=== PATIENT | female | born 2000 | race Caucasian/White ===

== ENCOUNTER 2020-08-11 15:06 | Emergency (ER) | payer OTHER ==
[2020-08-11 17:05] LABS: Urine Blood NEGATIVE (NEG); Urine Glucose NEGATIVE (NEG); Urine Protein NEGATIVE (NEG); Urine Specific Gravity 1.025 (1.005-1.030)
[2020-08-11 18:05] LABS: Absolute Lymphocytes (CBC) 1.5 K/uL (0.7-4.9); Basophils % 0.4 % (0-1.3); Hematocrit 33.7 % (36.0-45.0); Lymphocytes % 20.8 % (15.3-44.8); MPV 8.8 fL (7.6-11.3); RBC Red Blood Cell Count 3.96 M/uL (3.86-4.86)
--- NOTE | 2020-08-11 18:05 | RAD REPORT ---
EXAM DESCRIPTION: US - Transvaginal OB - 08/11/2020 5:43 pm CLINICAL HISTORY: with pelvic pain and vaginal bleeding COMPARISON: None. FINDINGS: The uterus measures 9 x 5 x 6 centimeters. A normal appearing gestational sac is present within the endometrium. Within this is a yolk sac and pole with a crown-rump length 4.5 centime ters. Cardiac activity 171 beats per minute 4.1 centimeter isoechoic structure is present along the anterior uterine wall. Right ovary normal in size and echotexture. Left ovary not seen secondary to overlying bowel gas. . A n adnexal mass is not noted. No significant free fluid is seen. IMPRESSION: Single live intrauterine with an estimated gestational age 11 weeks 0 days ED D 03/02/2021 4.1 centimeter isoechoic structure anterior uterine wall may represent a fibroid, myometrial contract ion or hematoma. It is recommended that the patient have a followup ultrasound in 1 week for re-evalu ation If a survey is desired it should be performed in approximately 7 weeks
--- NOTE | 2020-08-11 18:35 | ER ---
Nurse's Notes [facility] Name: Samaria Alonzo Age: 20 yrs Sex: Female : 2000 Arrival Date: 08/11/2020 Time: 15:08 Bed 28 Private MD: Diagnosis: Threatened ;11 weeks gestation of Presentation: 08/11 15:43 Chief complaint: Patient states: I am 11 weeks and I was bleeding last night, ca1 but it stopped about 0500 - 0600 this morning. Denies pain. Coronavirus screen: Client denies travel out of the [place] in the last 14 days. At this time, the client does not indicate any symptoms associated with coronavirus-19. Ebola Screen: Patient negative for fever greater than or equal to 101.5 degrees Fahrenheit, and additional compatible Ebola Virus Disease symptoms Patient denies exposure to infectious person. Patient denies travel to an Ebola-affected area in the 21 days before illness onset. No symptoms or risks identified at this time. Initial Sepsis Screen: Does the patient meet any 2 criteria? No. Patient's initial sepsis screen is negative. Does the patient have a suspected source of infection? No. Patient's initial sepsis screen is negative. Risk Assessment: Do you want to hurt yourself or someone else? Patient reports no desire to harm self or others. Onset of symptoms was August 11, 2020. 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 - Social history:: Smoking status: Patient denies any tobacco usage or history of. Screenin:01 Abuse screen: Denies threats or abuse. Nutritional screening: No deficits noted. jd3 Tuberculosis screening: No symptoms or risk factors identified. Fall Risk Ambulatory Aid- None/Bed Rest/Nurse Assist (0 pts). Gait- Normal/Bed Rest/Wheelchair (0 pts) Mental Status- Oriented to own ability (0 pts). Total Mora Fall Scale indicates No Risk (0-24 pts). Assessment: 17:58 General: Appears in no apparent distress. uncomfortable, Behavior is calm, cooperative, jd3 appropriate for age. Pain: Denies pain. Neuro: Level of Consciousness is awake, alert, obeys commands, Oriented to person, place, time, situation. Cardiovascular: Denies chest pain, Capillary refill < 3 seconds Patient's skin is warm and dry. Respiratory: Airway is patent Respiratory effort is even, unlabored, Respiratory pattern is regular, symmetrical, Denies cough, shortness of breath. GI: Reports constipation, Patient currently denies abdominal pain, diarrhea, nausea, vomiting. : Reports vaginal bleeding that is since today. EENT: No signs and/or symptoms were reported regarding the EENT system. Derm: Skin is intact, Skin is dry, Skin is normal, Skin temperature is warm. Musculoskeletal: Circulation, motion, and sensation intact. Range of motion: intact in all extremities. 18:57 Reassessment: Patient appears in no apparent distress at this time. Patient and/or jd3 family updated on plan of care and expected duration. Pain level reassessed. Patient is alert, oriented x 3, equal unlabored respirations, skin warm/dry/pink. Patient denies pain at this time. Vital Signs: 15:43 BP 111 / 71; Pulse 74; Resp 16 S; Temp 97.9(TE); Pulse Ox 100% on R/A; Weight 75.3 kg ca1 (R); Height 5 ft. 5 in. (165.10 cm) (R); Pain 0/10; 18:57 BP 115 / 78; Pulse 81; Resp 16 S; Pulse Ox 100% on R/A; jd3 15:43 Body Mass Index 27.62 (75.30 kg, 165.10 cm) ca1 ED Course: 15:08 Patient arrived in ED. ag5 15:19 Joanna Buenrostro FNP-C is PHCP. kb 15:19 Ambrose Reynolds MD is Attending Physician. kb 15:44 Triage completed. ca1 15:45 Arm band placed on right wrist. ca1 17:13 Patient taken to ultrasound. via wheelchair. is 17:18 Marvin Randolph RN is Primary Nurse. jd3 17:37 Ultrasound completed. Patient tolerated well. Patient moved back from ultrasound. is 17:55 Inserted saline lock: 20 gauge in left antecubital area, using aseptic technique. Blood dh4 collected. 18:01 Patient has correct armband on for positive identification. Bed in low position. Call jd3 light in reach. Side rails up X 1. Adult w/ patient. Pulse ox on. NIBP on. 18:56 No provider procedures requiring assistance completed. IV discontinued, intact, jd3 bleeding controlled, No redness/swelling at site. Pressure dressing applied. Administered Medications: No medications were administered Outcome: 18:34 Discharge ordered by . sheryl 18:56 Discharged to home ambulatory, with family. jd3 18:56 Condition: stable 18:56 Discharge instructions given to patient, family, Instructed on discharge instructions, follow up and referral plans. Demonstrated understanding of instructions, follow-up care. 18:58 Patient left the ED. jd3 Signatures: Joanna Buenrostro, PIECE MEAT TRIMMER-C ANTOINETTE-Marvin Vargas RN RN jd3 Acob, Cheryl, RN RN ca1 Gaskin, Ajare 5 Erma, Radha is Mohit Connor 4
--- NOTE | 2020-08-11 18:35 | EDPHYS ---
Physician Documentation [facility] Name: Samaria Alonzo Age: 20 yrs Sex: Female : 2000 Arrival Date: 08/11/2020 Time: 15:08 Bed 28 Private MD: ED Physician Ambrose Reynolds HPI: 08/11 18:28 This 20 yrs old Female presents to ER via Ambulatory with complaints of kb Vaginal Bleeding, + Preg <12wks. 18:28 The patient presents to the emergency department with vaginal bleeding, described as kb spotting. course: care: private OB physician, Dr. Adrian. Previous pregnancies: the patient has never been . Associated signs and symptoms: The patient has no apparent associated signs or symptoms. The patient has not experienced similar symptoms in the past. The patient has not recently seen a physician. Pt reports vaginal bleeding last night, resolved around 0400. Called Dr Adrian's office this morning and was told to come to the ER to make sure everything was ok. 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 - Social history:: Smoking status: Patient denies any tobacco usage or history of. ROS: 18:31 Constitutional: Negative for fever, chills, and weight loss, Cardiovascular: Negative kb for chest pain, palpitations, and edema, Respiratory: Negative for shortness of breath, cough, wheezing, and pleuritic chest pain, Abdomen/GI: Negative for abdominal pain, nausea, vomiting, diarrhea, and constipation, : Negative for injury, bleeding, discharge, and swelling, MS/Extremity: Negative for injury and deformity, Skin: Negative for injury, rash, and discoloration, Neuro: Negative for headache, weakness, numbness, tingling, and seizure. Exam: 18:31 Constitutional: This is a well developed, well nourished patient who is awake, alert, kb and in no acute distress. Head/Face: Normocephalic, atraumatic. Chest/axilla: Normal chest wall appearance and motion. Nontender with no deformity. No lesions are appreciated. Cardiovascular: Regular rate and rhythm with a normal S1 and S2. No gallops, murmurs, or rubs. Normal PMI, no JVD. No pulse deficits. Respiratory: Lungs have equal breath sounds bilaterally, clear to auscultation and percussion. No rales, rhonchi or wheezes noted. No increased work of breathing, no retractions or nasal flaring. Abdomen/GI: Soft, non-tender, with normal bowel sounds. No distension or tympany. No guarding or rebound. No evidence of tenderness throughout. Skin: Warm, dry with normal turgor. Normal color with no rashes, no lesions, and no evidence of cellulitis. MS/ Extremity: Pulses equal, no cyanosis. Neurovascular intact. Full, normal range of motion. Neuro: Awake and alert, GCS 15, oriented to person, place, time, and situation. Cranial nerves II-XII grossly intact. Motor strength 5/5 in all extremities. Sensory grossly intact. Cerebellar exam normal. Normal gait. Vital Signs: 15:43 BP 111 / 71; Pulse 74; Resp 16 S; Temp 97.9(TE); Pulse Ox 100% on R/A; Weight 75.3 kg ca1 (R); Height 5 ft. 5 in. (165.10 cm) (R); Pain 0/10; 18:57 BP 115 / 78; Pulse 81; Resp 16 S; Pulse Ox 100% on R/A; jd3 15:43 Body Mass Index 27.62 (75.30 kg, 165.10 cm) ca1 MDM: 16:31 Patient medically screened. kb 18:31 Data reviewed: vital signs, nurses notes. Data interpreted: Pulse oximetry: on room air kb is 100 %. Interpretation: normal. Counseling: I had a detailed discussion with the patient and/or guardian regarding: the historical points, exam findings, and any diagnostic results supporting the discharge/admit diagnosis, lab results, radiology results, the need for outpatient follow up, an OB/Gyne specialist, to return to the emergency department if symptoms worsen or persist or if there are any questions or concerns that arise at home. 08/11 16:33 Order name: Quantitative Hcg kb 08/11 16:33 Order name: Abo/rh Typing kb 08/11 16:33 Order name: Basic Metabolic Panel kb 08/11 16:33 Order name: CBC with Diff kb 08/11 16:41 Order name: Urine Dipstick--Ancillary (enter results) bd 08/11 16:41 Order name: Urine --Ancillary (enter results) bd 08/11 16:31 Order name: US Transvaginal Ob kb 08/11 17:06 Order name: Urine --Ancillary; Complete Time: 17:09 EDMS 08/11 17:06 Order name: Urine Dipstick-Ancillary; Complete Time: 17:09 EDMS 08/11 18:11 Order name: CBC with Automated Diff; Complete Time: 18:13 EDMS 08/11 18:42 Order name: ABO/RH typing; Complete Time: 18:53 EDMS 08/11 18:42 Order name: Basic Metabolic Panel; Complete Time: 18:53 EDMS 08/11 18:42 Order name: HCG, Quantitative; Complete Time: 18:53 EDMS 08/11 18:50 Order name: ABO/RH no charge; Complete Time: 18:53 EDMS 08/11 15:21 Order name: Urine Test (obtain specimen); Complete Time: 17:19 kb 08/11 15:21 Order name: Urine Dipstick-Ancillary (obtain specimen); Complete Time: 17:19 kb 08/11 16:33 Order name: Labs collected and sent; Complete Time: 17:51 kb 08/11 18:08 Order name: US; Complete Time: 18:13 EDMS Administered Medications: No medications were administered Disposition: 08/11/20 18:34 Discharged to Home. Impression: Threatened , 11 weeks gestation of . - Condition is Stable. - Discharge Instructions: Vaginal Bleeding During , First Trimester, First Trimester of , [id number], Threatened Miscarriage, [id number], Pelvic Rest. - Medication Reconciliation Form, Thank You Letter, Antibiotic Education, Prescription Opioid Use form. - Follow up: Emergency Department; When: As needed; Reason: Worsening of condition. Follow up: Private Physician; When: 2 - 3 days; Reason: Recheck today's complaints, Continuance of care, Re-evaluation by your physician. Addendum: 08/13/2020 19:43 Co-signature as Attending Physician, Ambrose Reynolds MD. r n Signatures: Dispatcher [employer] ED Joanna Buenrostro, INTERNATIONAL TRADE MANAGER-C INTERNATIONAL TRADE MANAGER-Ckb Ambrose Reynolds MD MD rn Davies, Jonathon RN RN jd3 Jackie Dee RN RN ca1 Corrections: (The following items were deleted from the chart) 08/11 18:58 18:34 08/11/2020 18:34 Discharged to Home. Impression: Threatened ; 11 weeks jd3 gestation of . Condition is Stable. Discharge Instructions: Vaginal Bleeding During , First Trimester, First Trimester of , [id number], Threatened Miscarriage, [id number], Pelvic Rest. Forms are Medication Reconciliation Form, Thank You Letter, Antibiotic Education, Prescription Opioid Use. Follow up: Emergency Department; When: As needed; Reason: Worsening of condition. Follow up: Private Physician; When: 2 - 3 days; Reason: Recheck today's complaints, Continuance of care, Re-evaluation by your physician. kb
[2020-08-11 18:41] LABS: BUN Blood Urea Nitrogen 5 mg/dL (7-18); Bicarbonate 26 mmol/L (21-32); Glucose Level 99 mg/dL (74-106); HCG, Quantitative 100333 mIU/mL (1-3); Potassium 3.6 mmol/L (3.5-5.1); Sodium Level 139 mmol/L (136-145)
[2020-08-14 23:42] VITALS: BP 115/78; O2SAT 100
[2020-08-14 23:43] VITALS: TEMP 97.9
== END 2020-08-11 18:58 | disposition home or self-care (01) ==
LOC: ER 15:06
DX: O20.0 Threatened abortion (principal); Z3A.11 11 weeks gestation of pregnancy
CPT/HCPCS: 36415; 76817; 80048; 81003; 81025; 84702; 85025; 86900; 86901; 99284

== ENCOUNTER 2021-02-17 23:54 | Inpatient (IN) | payer OTHER ==
[2021-02-18] MEDS ORDERED: MEPERIDINE HCL 25 MG/ML SYR IM ONE (01:10)
[2021-02-18] MEDS ORDERED: PROMETHAZINE INJ 25 MG/ML AMP IM ONE (01:10)
[2021-02-18] MEDS ORDERED: PROMETHAZINE INJ 25 MG/ML AMP ONE (01:39)
[2021-02-18] MEDS ORDERED: MEPERIDINE HCL 25 MG/ML SYR ONE (01:39)
[2021-02-18 04:20] LABS: Absolute Lymphocytes (CBC) 1.6 K/uL (0.7-4.9); Basophils % 0.5 % (0-1.3); Hematocrit 33.7 % (36.0-45.0); Lymphocytes % 12.8 % (15.3-44.8); RBC Red Blood Cell Count 3.96 M/uL (3.86-4.86)
[2021-02-18 04:24] VITALS: BMI 31.2
[2021-02-18] MEDS ORDERED: MEPERIDINE HCL 25 MG/ML SYR IV PRN (04:34)
[2021-02-18] MEDS ORDERED: BUTORPHANOL 1 MG/ML INJ IV PRN (04:34)
[2021-02-18] MEDS ORDERED: METHYLERGONOVINE 0.2MG/ML AMP IM PRN (04:34)
[2021-02-18] MEDS ORDERED: Ringers Lactate 1,000 ML IV PRN (04:34)
[2021-02-18] MEDS ORDERED: CARBOPROST TROME 250 MCG/ML IM PRN (04:34)
[2021-02-18] MEDS ORDERED: PROMETHAZINE INJ 25 MG/ML AMP IM PRN (04:34)
[2021-02-18] MEDS ORDERED: FENTANYL CITR 100 MCG/2 ML IV ONE (04:42)
[2021-02-18] MEDS ORDERED: ROPIVACAINE HCL 0.2% 20ML AMP EP ONE ×2 (04:46→05:00)
[2021-02-18] MEDS ORDERED: Ringers Lactate 1,000 ML IV SCH (05:00)
[2021-02-18] MEDS ORDERED: OXYTOCIN/LR 20 UNIT/1,000 ML BAG IV SCH ×2 (05:00→08:00)
[2021-02-18] MEDS ORDERED: ROPIVACAINE HCL 100 ML EP ONE (05:19)
[2021-02-18] MEDS ORDERED: LIDOCAINE 1% MPF 30 ML VIAL ONE (07:30)
[2021-02-18] MEDS ORDERED: METHYLERGONOVINE 0.2MG/ML AMP IM ONE (07:30)
[2021-02-18] MEDS ORDERED: CARBOPROST TROME 250 MCG/ML IM ONE (07:30)
[2021-02-18] MEDS ORDERED: DOCUSATE NA/SENNA CONC 1 TAB PO PRN (07:34)
[2021-02-18] MEDS ORDERED: BISACODYL 10 MG RECTAL SUPP PR PRN (07:34)
[2021-02-18] MEDS ORDERED: IBUPROFEN 200 MG TAB PO PRN (07:34)
[2021-02-18] MEDS ORDERED: ACETAMINOPHEN 500 MG TAB PO PRN (07:34)
[2021-02-18] MEDS ORDERED: Oxycodone HCl/Acetaminophen 1 TAB TAB PO PRN ×2 (07:34)
[2021-02-18] MEDS ORDERED: DIPHENHYDRAMINE 25 MG TAB/CAP PO PRN (07:34)
--- NOTE | 2021-02-18 11:57 | PREOPHP ---
Date of Admission: 02/18/2021 History Of Present Illness: A 21-year-old primigravida 38 weeks 5 days came in active labor. During the first stage of labor received Demerol 25 mg and Phenergan 25 mg. She was admitted and progresse d to 4 cm, at which time, requested and received epidural anesthesia. Admitted for stabilization and delivery at that point. Family History: Noncontributory. Past Medical History: No. Past Surgical History: No surgery. Allergies: NO ALLERGIES. Allergies: NO MEDICATION PRIOR TO ADMISSION OTHER THAN VITAMINS AND IRON. Social History: Does not smoke. Physical Examination: HEENT: Clear. Pupils equal, round, reactive to light and accommodation. Conjunctivae well perfused . No oral, lingual, or buccal lesions. Chest and lungs: Clear. Heart: Without murmurs, thrills, heaves, rubs. Breasts: Without masses on previous visits. Extremities: Clear. Abdomen: Term size, but with the baby expected to be in the 6-pound range. Assessment And Plan: Admit for stabilization and delivery. The patient is Rh positive, immune to ru elizabeth, negative strep, positive COVID completely asymptomatic. HAMILTONC/MODL Voice ID: [id number]
[2021-02-19 01:09] LABS: RPR (Rapid Plasma Reagin) NON-REACT (NON-REACT)
--- NOTE | 2021-02-19 06:38 | DN ---
Surgeon: Colt Adrian MD This is a 21-year-old primigravida, at 38 weeks 5 days came in early labor, was given Demerol 25, Phe nergan 25 initially then epidural anesthesia at 4 cm, went rapidly to complete second stage of about 15 minutes. Spontaneous vaginal delivery of a 6 pounds 7 ounces male infant, Apgars 9 and 9. No epi siotomy. No laceration. Schultze delivery of the placenta was inspected and noted to be intact and normal. Less than 200 cc blood loss. Tolerated all procedures well. She was noted to be in positiv e COVID but completely asymptomatic. Final Diagnoses: Term intrauterine , spontaneous labor, epidural anesthesia, and positive C OVID status, asymptomatic. NBC/MODL Voice ID: [id number] Report ID: [id number]
[2021-02-19 07:48] VITALS: BP 121/76; TEMP 97.2
[2021-02-19] MEDS ORDERED: Tdap (Diph,Pertuss(Acell),Tet Vac) 0.5 ML SYR IMVAC ONE (08:35)
--- NOTE | 2021-02-19 11:26 | DS ---
Hospital Course: A 21-year-old, primigravida, 38 weeks 5 days, came in spontaneous labor. Delivered of a 6-pound 7-ounce male infant, Apgars 9 and 9. Epidural anesthesia. No episiotomy. No lacerati on. Schultze delivery of the placenta, which inspected and noted to be intact and normal. Less than 200 mL blood loss. Rh positive, immune to rubella. Negative strep. Positive COVID, completely asy mptomatic. ; afebrile, ambulating and voiding. No post epidural problems. To report back to my office in 6 weeks for followup to report any temperature elevation of 100 degrees or greater, severe pain, heavy bleeding, or any other type abnormalities. Tdap has been discussed several times during the and again today. Final Diagnoses: Term intrauterine 38 weeks 5 days, spontaneous labor, vaginal delivery, e pidural anesthesia, positive COVID, completely asymptomatic. MARK/ARAMIS Voice ID: [id number] Report ID: [id number]
[2021-02-20 15:14] LABS: HBsAG Nonreactive (Nonreactive)
== END 2021-02-19 12:30 | disposition home or self-care (01) | DRG 805 ==
LOC: L&D 23:54 → 2ND-WC 02-18 03:41
PROVIDERS: ADMIT Specialist; ATTEND Specialist
PROC: 10E0XZZ Delivery of Products of Conception, External Approach (ICD-10-PCS; principal; 2021-02-18)
DX: O98.52 Other viral diseases complicating childbirth (principal); U07.1 COVID-19; Z37.0 Single live birth; Z3A.38 38 weeks gestation of pregnancy; Z23 Encounter for immunization
CPT/HCPCS: 36415; 85025; 86592; 86901; 87340; 90471; 90715; J2175; J2210; J2550; J2590; J2795; J3010; J7120; U0003

== ENCOUNTER 2023-03-08 20:57 | Emergency (ER) | payer OTHER ==
--- OUTSIDE RECORDS SUMMARY | 2023-03-08 21:01 | XMS REPORT | Continuity of Care Document ---
:2000 Author Organization [facility] t Address [address] [facility]. [address] [place] [address] Care Team Providers Name Role Phone PCP, PATIENT DOES NOT HAVE A Primary Care Physician Unavaila FRANCES Gómez Attending Clinician Unavailable 2, Adc Lab Attending Clinician Unavailable Frances Riojas MD Attending Clinician Doctor Unassigned, [place] Attending Clinician Unavailable ANGELA SANCHEZ Attending Clinician Unavailable Justino Chan CRNA Attending Clinician Brennon Jordan MD Attending Clinician [phone] Rachelle Stevens MD Attending Clinician Only, Adc Test Attending Clinician Unavailable Pob, Adc Lab Main Attending Clinician Unavailable Room, [facility] Nst Attending Clinician Unavailable Angela Sanchez PA-C Attending Clinician Ultrasound, Ang-Mfm Attending Clinician Unavailable Telma Fontanez DO Attending Clinician FRANCES RIOJAS Admitting Clinician Unavailable Frances Riojas MD Admitting Clinician Payers Payer Name Policy Type Policy Number Effective Date Expiration Date Gabi MUNOZ [id number] 2016 HEALTH 00:00:00 Problems Condition Condition Condition Status Onset Resolution Last Treating Co mments Source Name Details Category Date Date Treatment Clinician Date Anemia, Anemia, Disease Active Univers antepartum antepartum -18 it y of , third , third 00:00: [place] trimester trimester 00 [facility] Depression Depression Disease Active U nivers during during 2-09 ity of , , [place] antepartum antepartum 00 Me dical Branch Allergies, Adverse Reactions, Alerts Allergy Allergy Status Severity Reaction(s) Onset Inactive Treating Comm ents Source Name Type Date Date Clinician NO KNOWN Drug Active Univers ALLERGIE Class ity of S [facility] Social History Social Habit Start Date Stop Date Quantity Comments Source History SDOH University o f Alcohol Frequency [place] M edical Branch History SDOH University o f Alcohol Std [place] Medical Drinks Branch History SDOH University o f Alcohol Binge [place] Medic al Branch Exposure to 2022-12-12 2022-12-22 Not sure University SARS-CoV-2 00:00:00 15:04:00 [facility] (event) [place] Alcohol intake 2022-12-22 2022-12-22 Current drinker Unive rsity of 00:00:00 00:00:00 of alcohol [facility] (finding) [place] Tobacco use and 2022-03-16 2022-03-16 Smokeless tobacco Un iversity of exposure 00:00:00 00:00:00 non-user [facility] Alcohol Comment 2021-10-14 2021-10-14 occationa Universit y of 00:00:00 00:00:00 [facility] Sex Assigned At [birth year] Universit y of 00:00:00 00:00:00 [facility] Smoking Status Start Date Stop Date Source Never smoked tobacco [facility] Medications Ordered Filled Start Stop Current Ordering Indication Dosage Frequency Signature Comments Components Source Medication Medication Date Date Medication? 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 levonorgest 2021- No [id number] 1{devic 1 Device Univers reL 05-1914 e} by ity of (MIRENA) 20 00:00: 00:00 Intrauteri [place] mcg/24 00 :00 ne route Medical hours (7 once now Branch yrs) 52 mg for 1 IUD dose. miSOPROStoL 2021- No [id number] 200ug Take 1 Univers 200 mcg 04-13 tablet by ity of tablet 00:00: 00:00 mouth [place] 00 :00 SEE-INSTRU Medical CTIONS. Branch Take one tab the night before and one tab the morning of procedure miSOPROStoL 2021- No [id number] 200ug Take 1 Univers 200 mcg 04-13 tablet by ity of tablet 00:00: 00:00 mouth [place] 00 :00 SEE-INSTRU Medical CTIONS. Branch Take one tab the night before and one tab the morning of procedure Yes [id number] 1{tbl} Take 1 Univers vitamin 7-20 09 tablet by ity of w/FA tablet 00:00: mouth [place] 00 the Medical morning. Branch Yes [id number] 1{tbl} Take 1 Univers vitamin 7-20 09 tablet by ity of w/FA tablet 00:00: [place] 00 the Medical morning. [facility] Yes [id number] 1{tbl} Take 1 Univers vitamin 7-20 09 tablet by ity of w/FA tablet 00:00: [place] 00 the Medical morning. [facility] Yes [id number] 1{tbl} Take 1 Univers vitamin 7-20 09 tablet by ity of w/FA tablet 00:00: [place] 00 the Medical morning. [facility] Yes [id number] 1{tbl} Take 1 Univers vitamin 7-20 09 tablet by ity of w/FA tablet 00:00: [place] 00 the Medical morning. [facility] Yes [id number] 1{tbl} Take 1 Univers vitamin 7-20 09 tablet by ity of w/FA tablet 00:00: [place] 00 the Medical morning. [facility] Yes [id number] 1{tbl} Take 1 Univers vitamin 7-20 09 tablet by ity of w/FA tablet 00:00: [place] 00 the Medical morning. [facility] 2022- No [id number] 1{tbl} Take 1 Univers vitamin 7-20 04-19 09 tablet by ity of w/FA tablet 00:00: 00:00 mouth [place] 00 :00 the Medical morning. [facility] 2022- No [id number] 1{tbl} Take 1 Univers vitamin 7-20 04-19 09 tablet by ity of w/FA tablet 00:00: 00:00 mouth [place] 00 :00 the Medical morning. [place] docusate 2021- No [id number] 200mg Take 2 Univers 100 mg -05-19 09 capsules ity of capsule 00:00: 00:00 by mouth [place] 00 :00 once daily Medical as needed Branch for Constipati on. ferrous 2021- No [id number] 325mg Take 1 Univers sulfate 325 -05-19 09 tablet by it y of mg (65 mg 00:00: 00:00 mouth in [place] as iron) 00 :00 the Medical tablet morning Branch and 1 tablet in the evening. ibuprofen 2021- No [id number] 600mg Take 1 Univers 600 mg 03-24 09 tablet by ity of tablet 00:00: 00:00 mouth [place] 00 :00 every 6 Medical (six) Branch hours as needed (Pain). Take with food or milk. docusate No [id number] 200mg Take 2 Univers 100 mg 03-24 09 capsules ity of capsule 00:00: 00:00 by mouth [place] 00 :00 once daily Medical as needed Branch for Constipati on. ferrous No [id number] 325mg Take 1 Univers sulfate 325 03-24 tablet by it y of mg (65 mg 00:00: 00:00 mouth in [place] iron) 00 :00 the Medical tablet morning Branch and 1 tablet in the evening. ibuprofen No [id number] 600mg Take 1 Univers 600 mg 03-24 09 tablet by ity of tablet 00:00: 00:00 mouth [place] 00 :00 every 6 Medical (six) Branch hours as needed (Pain). Take with food or milk. Immunizations Ordered Filled Immunization Date Status Comments [facility] Immunization Name Name [facility] 2022-01-07 Completed University of 00:00:00 [facility] [place] [facility] 2022-01-07 Completed University of 00:00:00 [facility] TDAP 2022-01-07 Completed University of 00:00:00 [facility] TDAP 2022-01-07 Completed University of 00:00:00 [facility] TDAP 2022-01-07 Completed University of 00:00:00 [facility] TDAP 2022-01-07 Completed University of 00:00:00 [facility] TDAP 2022-01-07 Completed University of 00:00:00 [facility] TDAP 2022-01-07 Completed University of 00:00:00 [facility] [place] [facility] 2022-01-07 Completed University of 00:00:00 [facility] Vital Signs Vital Name Observation Time Observation Value Comments Source Systolic blood 2022-12-22 20:24:00 95 mm[Hg] Univer sity of pressure [facility] Diastolic blood 2022-12-22 20:24:00 69 mm[Hg] Unive rsity of pressure [facility] Heart rate 2022-12-22 20:24:00 92 /min [facility]i [facility] [place] [facility] Body temperature 2022-12-22 20:24:00 36.83 Winsome Univ ersity of [place] [facility] Body weight 2022-12-22 20:24:00 69.854 kg [facility] [place] [facility] BMI 2022-12-22 20:24:00 25.63 kg/m2 [facility] [place] [facility] Systolic blood 2022-06-16 20:03:00 130 mm[Hg] Univer sity of pressure [place] [facility] Diastolic blood 2022-06-16 20:03:00 65 mm[Hg] Unive rsity of pressure [place] [facility] Heart rate 2022-06-16 20:03:00 81 /min [facility]i [facility] [place] [facility] Body temperature 2022-06-16 20:03:00 36.67 Winsome Univ ers[facility] [place] [facility] Respiratory rate 2022-06-16 20:03:00 18 /min Univ ers[facility] [place] [facility] Body height 2022-06-16 20:03:00 165.1 cm [facility] [place] [facility] Body weight 2022-06-16 20:03:00 72.757 kg [facility] [place] [facility] BMI 2022-06-16 20:03:00 26.69 kg/m2 [facility] [place] [facility] Systolic blood 2022-05-19 14:13:00 121 mm[Hg] Univer sity of pressure [place] [facility] Diastolic blood 2022-05-19 14:13:00 79 mm[Hg] Unive rsity of pressure [place] [facility] Heart rate 2022-05-19 14:13:00 62 /min Universi [facility] [place] [facility] Body temperature 2022-05-19 14:13:00 36.72 Winsome Univ [facility] [place] [facility] Respiratory rate 2022-05-19 14:13:00 18 /min Univ ers[facility] [place] [facility] Body height 2022-05-19 14:13:00 165.1 cm [facility] [place] [facility] Body weight 2022-05-19 14:13:00 73.029 kg [facility]i [facility] [place] [facility] BMI 2022-05-19 14:13:00 26.79 kg/m2 [facility] [place] [facility] Procedures Procedure Date / Time Performed Performing Clinician Sour e ASSIGNMENT OF BENEFITS 2022-12-22 20:05:16 Doctor Unassigned, No [facility] 2022-05-19 05:01:00 Doctor Unassigned, No [facility] POCT TEST 2022-05-19 00:00:00 Frances Riojasi ty of [facility] Encounters Start End Encounter Admission Attending Care Care Encounter Source Date/Time Date/Time Type Type Clinicians Facility Department ID 2022-03-01 Outpatient P FRANCES RIOJAS [facility] DENYS [id number] Univers 17:20:14 ity of [facility] 2022-12-22 2022-12-22 Brim Stretcher 2, Adc Lab [facility] 1.2.840.114 [id number] Univers 16:00:00 16:15:00 Visit Frances Riojas 350.1.13.10 ity [facility] 4[place]7.2.[place] [id number] Fl dical NAL [address] [facility] 2022-12-22 2022-12-22 Outpatient R FRANCES RIOJAS [facility] [id number] Univers 15:30:00 15:45:22 ity of [facility] 2022-12-22 2022-12-22 Office Frances Riojas [facility] [id number] Univers 15:30:00 15:45:22 Visit Dajuan MARTIN 350.1.13.10 i ty [facility] 4[place]2.7.2.[place] [id number] Fl dical NAL 134 [facility] 2022-12-22 2022-12-22 Orders Doctor MULLEN 1.2.840.114 [id number] Univers 00:00:00 00:00:00 Only Unassigned, GRACE 350.1.13.10 ity of [facility] 4.2.7.2.686 Major as [id number] [address] 2022-12-15 2022-12-15 Outpatient R LAURA [facility] [id number] Univers 13:30:00 13:30:00 ANGELA ity of [facility] 2022-10-14 2022-10-14 Emergency [facility] [id number] Univers 13:49:47 13:49:00 ity of [facility] 2022-06-16 2022-06-16 Outpatient R [facility] [id number] Univers 15:30:00 15:30:00 ity of [facility] 2022-06-16 2022-06-16 Office Riojas [facility] [id number] Univers 15:30:00 15:30:00 Visit Dajuan MARTIN 350.1.13.10 i ty of [place] 4.2.7.2.[place] [id number] Fl dical [address] 2022-06-16 2022-06-16 Outpatient R FRANCES RIOJAS [facility] [id number] Univers 15:30:00 15:13:08 ity of [facility] 2022-05-19 2022-05-19 Outpatient R [facility] [id number] Univers 09:00:00 09:47:42 ity of [facility] 2022-05-19 2022-05-19 Office Riojas [facility] [id number] Univers 09:00:00 09:47:42 Visit Dajuan MARTIN 350.1.13.10 i ty of [place] 4.2.7.2.[place] [id number] Fl dic[address] 2022-05-19 2022-05-19 [facility] [id number] Univers 09:00:00 09:47:42 ity [facility] 2022-05-19 2022-05-19 Orders Doctor MULLEN 1.2.840.114 [id number] Univers 00:00:00 00:00:00 Only Unassigned, GR[place] 350.1.13.10 ity of [facility] 4.2.7.2.686 [place] as [id number] [address] 2022-04-13 2022-04-13 Outpatient R RIOJAS [facility] [id number] Univers 08:00:00 08:48:12 ity [facility] 2022-04-13 2022-04-13 Routine Shine [facility] 1.2.669.808 [id number] Univers 08:00:00 08:48:12 Cam [place] 350.1.13.10 ity of Visit [place] 4.2.7.2.686 [facility] [id number] Fl dical [facility] 134 Branch [facility] 2022-04-12 2022-04-12 Outpatient R [facility] [id number] Univers 13:00:00 13:00:00 ity of [facility] 2022-04-12 2022-04-12 Outpatient R [facility] [id number] Univers 13:00:00 13:00:00 ity of [facility] 2022-03-23 2022-03-24 Inpatient P SHINE [facility] DENYS [id number] Univers 04:19:00 20:15:00 ity of [facility] 2022-03-23 2022-03-24 [facility] Shine Frances [facility] 1.2.840.114 [id number] Univers 04:19:00 20:15:00 Encounter Cam [place] 350.1.13.10 ity of [place] 4.2.7.2.686 [facility] [id number] [place] [address] Branch 2022-03-24 2022-03-24 Anesthesia Rocio, [facility] 1.2.840.114 [id number] Univers 20:03:54 20:03:54 Event Justino [place] 350.1.13.10 i ty of [place] 4.2.7.2.686 [facility] [id number] [place] [id number] Branch 2022-03-23 2022-03-23 Anesthesia Antony-Brennon Dias [facility] 1.2.840.114 [id number] Univers 11:15:00 16:54:00 Event Rachelle Stevens [place] 350.1.13.10 ity of [place] 4.2.7.2.686 [facility] [id number] [facility] 083 Branch 2022-03-22 2022-03-22 Laboratory Only, Adc Test [facility] 1.2.840. 114 [id number] Univers 13:15:00 13:30:00 Only Frances Riojas 350.1.13.10 ity of [facility] 4.2.7.2.[place] [id number] [facility] 353 [place] 2022-03-22 2022-03-22 Outpatient R FRANCES RIOJAS [facility] [id number] Univers 13:15:00 13:15:00 ity of [facility] 2022-03-22 2022-03-22 Brim Stretcher [place], [facility] Lab Main [facility] 1.2.8 40.114 [id number] Univers 10:45:00 11:00:00 Visit Frances Riojas 350.1.13.10 ity of [place] 4.2.7.2.[place] [id number] Fl dical NAL 353 [facility] 2022-03-22 2022-03-22 Outpatient R FRANCES RIOJAS [facility] [id number] Univers 09:00:00 10:07:44 ity of [facility] 2022-03-22 2022-03-22 Routine Room, [facility] 1.2.840.1 [id number] Univers 09:00:00 10:07:44 Frances Riojas 350.1.13.10 ity of Visit [place] 4[place]2.7.2.[place] [id number] Fl dical NAL 134 [facility] 2022-03-22 2022-03-22 Orders Doctor PAZ 1.2.840.114 [id number] Univers 00:00:00 00:00:00 Only Unassigned, GRACE 350.1.13.10 ity of [place] [facility] 4.2.7.2.686 Major as [id number] [facility] 00[address] [place] 2022-03-16 2022-03-16 Outpatient R FRANCES RIOJAS [facility] [id number] Univers 15:00:00 15:49:33 ity of [facility] 2022-03-16 2022-03-16 Routine Frances Riojas [facility] 1.2.797.042 [id number] Univers 15:00:00 15:49:33 Dajuan MARTIN 350.1.13.10 ity of Visit [place] 4.2.7.2.686 [place] [id number] [address] 2022-03-12 2022-03-12 Telephone RiojasVjen [facility] 1.2.840.114 [id number] Univers 00:00:00 00:00:00 Cam VERONICA 350.1.13.10 i ty of [place] 4.2.7.2.686 [place] [id number] [address] 2022-03-09 2022-03-09 Outpatient R LAURA [facility] [id number] Univers 08:45:00 09:39:43 ANGELA ity of [facility] 2022-03-09 2022-03-09 [facility] 1.2.978.371 [id number] Univers 08:45:00 09:39:43 Angela MARTIN 350.1.13.10 ity of Visit [place] 4.2.7.2.[place] [id number] [address] 2022-03-02 2022-03-02 Outpatient R FRANCES RIOJAS [facility] [id number] Univers 15:45:00 16:41:39 ity of [facility] 2022-03-02 2022-03-02 [facility] [id number] Univers 15:45:00 16:41:39 Cam VERONICA 350.1.13.10 ity of Visit [place] 4.2.7.2.[place] [id number] [address] 2022-03-02 2022-03-02 Orders Doctor PAZ 1.2.840.114 [id number] Univers 00:00:00 00:00:00 Only Unassigned, GRACE 350.1.13.10 ity of [place] [facility] 4.2.7.2.686 Major as [id number] [address] 2022-03-01 2022-03-01 Outpatient P SHINE [facility] DENYS [id number] Univers 15:38:00 17:20:00 ity of [facility] 2022-03-01 2022-03-01 Hospital Frances Riojas [facility] 1.2.840.114 [id number] Univers 15:38:00 17:20:00 Encounter Dajuan JOMESHA 350.1.13.10 ity of [place] 4.2.7.2.686 [place] [id number] [facility] 083 Branch 2022-03-01 2022-03-01 Telephone Frances Riojas [facility] 1.2.840.114 [id number] Univers 00:00:00 00:00:00 Cam VERONICA 350.1.13.10 i ty of [place] 4.2.7.2.686 [place] [id number] Fl dical NAL 134 [facility] 2022-01-21 2022-01-21 Outpatient R FRANCES RIOJAS [facility] [id number] Univers 11:15:00 11:15:00 ity of [facility] 2022-01-07 2022-01-07 Routine Laura [facility] [id number] Univers 09:45:00 10:00:00 Angela MARTIN 350.1.13.10 ity of Visit [place] 4.2.7.2.[place] [id number] Fl dical NAL [address] [place] [address] 2022-01-07 2022-01-07 Outpatient R LAURA [facility] [id number] Univers 09:45:00 09:45:00 ANGELA ity [facility] 2021-12-24 2021-12-24 Outpatient R [facility] [id number] Univers 11:00:00 11:00:00 ity of [facility] 2021-12-23 2021-12-23 Orders Doctor PAZ 1.2.840.114 [id number] Univers 00:00:00 00:00:00 Only Unassigned, GRACE 350.1.13.10 ity of [place] [facility] 4.2.7.2.686 Major as [id number] [facility] 009 Branch 2021-12-10 2021-12-10 Outpatient R SHINE [facility] [id number] Univers 16:15:00 17:14:50 ity of [facility] 2021-12-10 2021-12-10 Routine Frances Riojas [facility] 1.2.022.396 [id number] Univers 16:15:00 17:14:50 Cam [place] 350.1.13.10 ity of Visit [place] 4.2.7.2.[place] [id number] Fl dic[address] 2021-12-07 2021-12-07 Telephone Frances Riojas [facility] 1.2.840.114 [id number] Univers 00:00:00 00:00:00 Cam VERONICA 350.1.13.10 i ty of [place] 4.2.7.2.[place] [id number] Fl dic[address] 2021-12-03 2021-12-03 Telephone Frances Riojas [facility] 1.2.840.114 [id number] Univers 00:00:00 00:00:00 Dajuan MARTIN 350.1.13.10 i ty of [place] 4.2.7.2.[place] [id number] [address] 2021-11-25 2021-11-25 Brim Stretcher [facility] 1.2 .840.114 [id number] Univers 11:00:00 12:00:00 Visit Telma Fontanez [facility] 350.1.13.10 ity of [facility] 4.2.7.2.686 Major as MATERNAL [id number] Med ical & CHILD [address] [place] [address] 2021-11-25 2021-11-25 Outpatient R JOSÉ [facility] [id number] Univers 11:00:00 11:00:00 TELMA ity of [facility] 2021-11-24 2021-11-24 Outpatient P [facility] [id number] Univers 14:45:00 14:45:00 ity [facility] 2021-11-20 2021-11-20 Telephone Frances Riojas [facility] 1.2.840.114 [id number] Univers 00:00:00 00:00:00 Dajuan MARTIN 350.1.13.10 i ty of [place] 4.2.7.2.[place] [id number] Fl dical NAL 134 [facility] 2021-11-20 2021-11-20 Telephone Frances Riojas [facility] 1.2.840.114 [id number] Univers 00:00:00 00:00:00 Dajuan MARTIN 350.1.13.10 i ty of [place] 4[place]2.7.2.[place] [id number] Fl dical NAL 134 [facility] 2021-11-16 2021-11-16 Outpatient R FRANCES RIOJAS [facility] [id number] Univers 09:45:00 09:45:00 ity of [facility] 2021-11-12 2021-11-12 Brim Stretcher 2, Adc Lab [facility] 1.2.840.114 [id number] Univers 10:45:00 11:00:00 Visit Frances Riojas 350.1.13.10 ity of [place] 4[place]2.7.2.[place] [id number] Fl dical PATRICIA 353 [facility] 2021-11-12 2021-11-12 [facility] [id number] Univers 09:30:00 10:31:32 ANGELA burnett [facility] 2021-11-12 2021-11-12 [facility] [id number] Univers 09:30:00 10:31:32 Angela MARTIN 350.1.13.10 ity of Visit [place] 4[place]2.[place] [id number] Fl dical [facility] 134 [facility] 2021-11-12 2021-11-12 Outpatient R LAURA [facility] [id number] Univers 09:30:00 09:30:00 ANGELA burnett [facility] 2021-11-12 2021-11-12 Orders Frances Riojas 1.2.613.436 [id number] Univers 00:00:00 00:00:00 Only Dajuan EDWARDS 350.1.13.10 it y of [facility] 4.2.7.2.686 Major as [id number] [address] 2021-10-29 2021-10-29 Orders Doctor PAZ 1.2.840.114 [id number] Univers 00:00:00 00:00:00 Only Unassigned, GRACE 350.1.13.10 ity of [place] [facility] 4.2.7.2.686 Major as [id number] [address] 2021-10-27 2021-10-27 Outpatient R FRANCES RIOJAS [facility] [id number] Univers 14:45:00 15:14:55 ity of [facility] 2021-10-27 2021-10-27 Routine Frances Riojas [facility] 1.2.206.646 [id number] Univers 14:45:00 15:14:55 Cam VERONICA 350.1.13.10 ity of Visit [place] 4[place]2.[place] PROFESSIO [phone] [address] 2021-10-20 2021-10-20 Telephone Frances Riojas PRCAROLINE [id number] Univers 00:00:00 00:00:00 Cam ANGLEMESHA [id number] i [id number] [phone] [address] 2021-10-19 2021-10-19 Outpatient R [facility] [id number] Univers 09:30:00 09:30:00 ity of [facility] 2021-10-16 2021-10-16 Case Frances Riojas PRCAROLINE [place] [id number] Univers 00:00:00 00:00:00 Management Cam CHRISTOPHER [id number] it[id number] [id number] [address] 2021-10-15 2021-10-15 Telephone Frances Riojas PRCAROLINE [id number] Univers 00:00:00 00:00:00 Cam VERONICA [id number] i [id number] PROFESS[place] [phone] [address] 2021-10-14 2021-10-14 Initial Frances Riojas [facility] [id number] Univers 10:00:00 11:38:21 Cam VERONICA [id number] ity of [id number] PROFESS[place] [phone] Me dical [address] 2021-10-14 2021-10-14 Outpatient R FRANCES RIOJAS [facility] [id number] Univers 10:00:00 11:38:21 ity of [facility] 2021-10-14 2021-10-14 Telephone rFances Riojas [facility] [id number] Univers 00:00:00 00:00:00 Cam VERONICA [id number] i ty [id number] PROF[place] [phone] Fl dical [address] Results Test Description Test Time Test Comments Results Result Comments Source POCT TEST 2022-05-19 14:19:00 Test Item Value Reference Range Interpretation Comme nts POCT PREG (test code = 1605) Negative On board controls acceptable with C Line (test code = 3574) Yes POCT PREG LOT # (test code = 3575) PO[facility]REG TEST DATE (test code = 3576[id number]:19:00 Test Item Value Reference Range Interpretation Comments POCT PREG (test code = 1605) Negative On board controls acceptable with C Yes Line (test code = 3574) POCT PREG LOT # (test code = 3575) POCT PREG TEST DATE (test code = 3576) [facility]
[2023-03-08] MEDS ORDERED: HYDROCODONE/APAP 5/325 MG TAB ONE (22:14)
[2023-03-08] MEDS ORDERED: HYDROMORPHONE HCL 1 MG/ML INJ ONE (22:57)
--- NOTE | 2023-03-09 03:54 | ER ---
Nurse's Notes [facility] Name: Samaria Alonzo Age: 23 yrs Sex: Female : 2000 Arrival Date: 03/08/2023 Time: 20:57 Bed 11 Private MD: Diagnosis: Pain in left elbow;Fracture of upper end of [id number];Fall on same level from slipping, tripping and stumbling with subsequent striking against object Presentation: 03/08 21:21 Chief complaint: Patient states: C/o pain and tingling to left arm 04/14, pt states she ll3 fell and hit left elbow on a tile floor, swelling noted to left elbow. Coronavirus screen: Vaccine status: Patient reports being unvaccinated. At this time, the client does not indicate any symptoms associated with coronavirus-19. Ebola Screen: No symptoms or risks identified at this time. Initial Sepsis Screen: Does the patient meet any 2 criteria? HR > 90 bpm. Yes Does the patient have a suspected source of infection? No. Patient's initial sepsis screen is negative. Risk Assessment: Do you want to hurt yourself or someone else? Patient reports no desire to harm self or others. Onset of symptoms was March 08, 2023 at 21:00. 21:21 Method Of Arrival: Ambulatory ll3 21:21 Acuity: DENIA 3 ll3 21:21 Care prior to arrival: Medication(s) given: Tylenol, 1000 mg. ll3 Triage Assessment: 21:24 General: Appears uncomfortable, Behavior is calm, cooperative. Pain: Complains of pain ll3 in left elbow Pain radiates to left hand Pain currently is 8 out of 10 on a pain scale. Quality of pain is described as sharp. Musculoskeletal: Swelling present in left elbow. Injury Description: Fall from standing position. 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 - Social history:: Smoking status: Patient denies any tobacco usage or history of. Vital Signs: 21:21 BP 124 / 89; Pulse 96; Resp 16; Temp 98.4(O); Pulse Ox 100% on R/A; Weight 73.48 kg ll3 (R); Height 5 ft. 5 in. (R); Pain 8/10; 21:21 Body Mass Index 26.96 (73.48 kg, 165.1 cm) ll3 21:21 Pain Scale: Adult 3 ED Course: 20:59 Patient arrived in ED. jj6 21:12 Lucy Do FNP-C [facility] snw 21:12 Amrit Pascal MD is Attending Physician. snw 21:23 Triage completed. ll3 21:24 Arm band placed on right wrist. Patient placed in waiting room, Patient notified of 3 wait time. 22:44 Roxanne Izquierdo, RN is Primary Nurse. kd3 22:58 Elbow Left 3 View XRAY In Process Unspecified. EDMS 22:59 Wrist Left (2 View) XRAY In Process Unspecified. EDMS Administered Medications: 22:09 Drug: HYDROcodone-acetaminophen PO 5 mg-325 mg 1 tabs Route: PO; ll3 03/09 04:27 Follow up: Response: No adverse reaction; Pain is decreased kd3 07 22:57 Drug: HYDROmorphone IM 1 mg Route: IM; Site: right deltoid; kd3 03/09 04:26 Follow up: Response: No adverse reaction; Pain is decreased kd3 03:55 Drug: HYDROmorphone IM 1 mg Route: IM; Site: right deltoid; kd3 04:26 Follow up: Response: No adverse reaction; Pain is decreased kd3 Outcome: 03:53 Discharge ordered by . snw 04:27 Patient left the ED. kd3 Signatures: Dispatcher [employer] EDMS Lucy Do FNP-C SLOTTER OPERATOR HELPER-Csnw Kia Izquierdo jj6 Radhames Biggs RN RN 3 Roxanne Izquierdo, RN RN kd3
--- NOTE | 2023-03-09 03:54 | EDPHYS ---
Physician Documentation [facility] Name: Samaria Alonzo Age: 23 yrs Sex: Female : 2000 Arrival Date: 03/08/2023 Time: 20:57 Bed 11 Private MD: ED Physician Amrit Pascal HPI: 03/08 22:46 This 23 yrs old Female presents to ER via Ambulatory with complaints of Arm snw Injury. 22:46 The patient or guardian complains of contusion, decreased range of motion, injury, snw pain. The complaints affect the dorsal aspect of left forearm and palmar aspect of left forearm. Onset: The symptoms/episode began/occurred suddenly, just prior to arrival. Associated signs and symptoms: Pertinent positives: tingling. The patient has not experienced similar symptoms in the past. It is unknown whether or not the patient has recently seen a physician. 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 - Social history:: Smoking status: Patient denies any tobacco usage or history of. ROS: 22:43 Constitutional: Negative for fever, chills, and weight loss, Eyes: Negative for injury, snw pain, redness, and discharge, ENT: Negative for injury, pain, and discharge, Neck: Negative for injury, pain, and swelling, Cardiovascular: Negative for chest pain, palpitations, and edema, Respiratory: Negative for shortness of breath, cough, wheezing, and pleuritic chest pain, Abdomen/GI: Negative for abdominal pain, nausea, vomiting, diarrhea, and constipation, Back: Negative for injury and pain, : Negative for injury, bleeding, discharge, and swelling, Skin: Negative for injury, rash, and discoloration, Neuro: Negative for headache, weakness, numbness, tingling, and seizure, Psych: Negative for depression, anxiety, suicide ideation, homicidal ideation, and hallucinations. 22:43 MS/extremity: Positive for injury or acute deformity, decreased range of motion, pain, swelling, tenderness, of the left arm and left elbow. Exam: 22:42 Musculoskeletal/extremity: Extremities: grossly normal except: noted in the left elbow: snw decreased ROM, swelling, tenderness, ROM: limited active range of motion due to pain, in the left elbow, limited passive range of motion due to pain, Pulses: are normal with no appreciated deficits, Perfusion: the extremity is warm, with brisk capillary refill, Tingling of extremity. 22:44 Constitutional: This is a well developed, well nourished patient who is awake, alert, snw and in no acute distress. Head/Face: Normocephalic, atraumatic. Eyes: Pupils equal round and reactive to light, extra-ocular motions intact. Lids and lashes normal. Conjunctiva and sclera are non-icteric and not injected. Cornea within normal limits. Periorbital areas with no swelling, redness, or edema. Neck: Trachea midline, no thyromegaly or masses palpated, and no cervical lymphadenopathy. Supple, full range of motion without nuchal rigidity, or vertebral point tenderness. No Meningismus. Chest/axilla: Normal chest wall appearance and motion. Nontender with no deformity. No lesions are appreciated. Cardiovascular: Regular rate and rhythm with a normal S1 and S2. No gallops, murmurs, or rubs. Normal PMI, no JVD. No pulse deficits. Respiratory: Lungs have equal breath sounds bilaterally, clear to auscultation and percussion. No rales, rhonchi or wheezes noted. No increased work of breathing, no retractions or nasal flaring. Skin: Warm, dry with normal turgor. Normal color with no rashes, no lesions, and no evidence of cellulitis. Neuro: Awake and alert, GCS 15, oriented to person, place, time, and situation. Cranial nerves II-XII grossly intact. Motor strength 5/5 in all extremities. Sensory grossly intact. Cerebellar exam normal. Normal gait. Psych: Awake, alert, with orientation to person, place and time. Behavior, mood, and affect are within normal limits. Vital Signs: 21:21 BP 124 / 89; Pulse 96; Resp 16; Temp 98.4(O); Pulse Ox 100% on R/A; Weight 73.48 kg ll3 (R); Height 5 ft. 5 in. (R); Pain 04/14; 21:21 Body Mass Index 26.96 (73.48 kg, 165.1 cm) ll3 21:21 Pain Scale: Adult ll3 MDM: 22:00 Differential diagnosis: dislocation, closed fracture. Data reviewed: vital signs, snw nurses notes, radiologic studies. Management of patient was discussed with the following: Dr. Huntley. I considered the following discharge prescriptions or medication management in the emergency department Medications were administered in the Emergency Department. See NOV. 22:00 Counseling: I had a detailed discussion with the patient and/or guardian regarding: the snw historical points, exam findings, and any diagnostic results supporting the discharge/admit diagnosis, radiology results, the need for outpatient follow up, for definitive care, to return to the emergency department if symptoms worsen or persist or if there are any questions or concerns that arise at home. Response to treatment: the patient's symptoms have markedly improved after treatment. Special discussion: Based on the history and exam findings, there is no indication for further emergent testing or inpatient evaluation. I discussed with the patient/guardian the need to see the orthopedic surgeon for further evaluation of the symptoms. 22:16 Patient medically screened. snw 03/08 21:36 Order name: Elbow Left 3 View XRAY snw 03/08 22:36 Order name: Wrist Left (2 View) XRAY snw 03/08 21:36 Order name: NPO; Complete Time: 22:09 snw 03/09 03:33 Order name: Splint - Elbow - Posterior: gutter from mid humerus to distal metacarpal; snw Complete Time: 04:26 Administered Medications: 22:09 Drug: HYDROcodone-acetaminophen PO 5 mg-325 mg 1 tabs Route: PO; ll3 03/09 04:27 Follow up: Response: No adverse reaction; Pain is decreased kd3 03/08 22:57 Drug: HYDROmorphone IM 1 mg Route: IM; Site: right deltoid; kd3 03/09 04:26 Follow up: Response: No adverse reaction; Pain is decreased kd3 03:55 Drug: HYDROmorphone IM 1 mg Route: IM; Site: right deltoid; kd3 04:26 Follow up: Response: No adverse reaction; Pain is decreased kd3 Disposition: 20:34 Co-signature as Attending Physician, Amrit Pascal MD I agree with the assessment sp4 and plan of care. I reviewed the patient's care provided by the Advanced Practice Provider and agree with the diagnosis and treatment plan. Disposition Summary: 03/09/23 03:53 Discharge Ordered Location: Home snw Condition: Stable snw Diagnosis - Pain in left elbow snw - Fracture of upper end of radius - intra-articular snw - Fall on same level from slipping, tripping and stumbling with subsequent striking snw against object Followup: snw - With: Emergency Department - When: As needed - Reason: Worsening of condition Followup: snw - With: Private Physician - When: Tomorrow - Reason: Recheck today's complaints, Continuance of care, Re-evaluation by your physician Discharge Instructions: - Discharge Summary Sheet snw - Elbow Fracture Treated With ORIF snw - Elbow Fracture Treated With ORIF, Care After snw - Fall Prevention in the Home, Adult snw - RICE Therapy for Routine Care of Injuries snw Forms: - Work release form snw - Medication Reconciliation Form snw - Thank You Letter snw - Antibiotic Education snw - Prescription Opioid Use snw - [email or web address] snw Prescriptions: - acetaminophen-codeine 300-30 mg Oral tablet - take 1 tablet by ORAL route every 6 hours as needed for pain; 21 tablet; snw Refills: 0, Product Selection Permitted - Mobic 7.5 mg Oral Tablet - take 1 tablet by ORAL route once daily take with food; 20 tablet; Refills: 0, snw Product Selection Permitted Signatures: Dispatcher [employer] EDMS Lucy Do, WINDOW SHADE CUTTER-C WINDOW SHADE CUTTER-Csnw Radhames Biggs, RN RN ll3 Roxanne Izquierdo RN RN kd3 Amrit Pascal MD MD sp4 [facility] Cor[facility]: (The following items were deleted from the chart) 03/08 22:46 22:42 Constitutional: This is a well developed, well nourished patient who is awake, snw alert, and in no acute distress. Head/Face: Normocephalic, atraumatic. Eyes: Pupils equal round and reactive to light, extra-ocular motions intact. Lids and lashes normal. Conjunctiva and sclera are non-icteric and not injected. Cornea within normal limits. Periorbital areas with no swelling, redness, or edema. ENT: Nares patent. No nasal discharge, no septal abnormalities noted. Tympanic membranes are normal and external auditory canals are clear. Oropharynx with no redness, swelling, or masses, exudates, or evidence of obstruction, uvula midline. Mucous membranes moist. Neck: Trachea midline, no thyromegaly or masses palpated, and no cervical lymphadenopathy. Supple, full range of motion without nuchal rigidity, or vertebral point tenderness. No Meningismus. Chest/axilla: Normal chest wall appearance and motion. Nontender with no deformity. No lesions are appreciated. Cardiovascular: Regular rate and rhythm with a normal S1 and S2. No gallops, murmurs, or rubs. Normal PMI, no JVD. No pulse deficits. Respiratory: Lungs have equal breath sounds bilaterally, clear to auscultation and percussion. No rales, rhonchi or wheezes noted. No increased work of breathing, no retractions or nasal flaring. Abdomen/GI: Soft, non-tender, with normal bowel sounds. No distension or tympany. No guarding or rebound. No evidence of tenderness throughout. Back: No spinal tenderness. No costovertebral tenderness. Full range of motion. Skin: Warm, dry with normal turgor. Normal color with no rashes, no lesions, and no evidence of cellulitis. Neuro: Awake and alert, GCS 15, oriented to person, place, time, and situation. Cranial nerves II-XII grossly intact. Motor strength 5/5 in all extremities. Sensory grossly intact. Cerebellar exam normal. Normal gait. Psych: Awake, alert, with orientation to person, place and time. Behavior, mood, and affect are within normal limits. snw 03/09 03:44 02:21 EKG - Nurse/Tech ordered. ah1 ll3
[2023-03-09] MEDS ORDERED: HYDROMORPHONE HCL 1 MG/ML INJ ONE (04:01)
[2023-03-09 04:32] VITALS: BP 124/89; TEMP 98.4; O2SAT 100
--- NOTE | 2023-03-10 11:09 | RAD REPORT ---
EXAM DESCRIPTION: RAD - Elbow Left 3 View - 03/08/2023 10:57 pm CLINICAL HISTORY: 23 years Female Smash injury;Pain TECHNIQUE: 3 views of the right elbow COMPARISON: No prior exams provided for comparison. FINDINGS: There are acute, comminuted, intra-articular fractures of the left radial head/neck. Possi ble fracture at the tip of the coronoid process of the proximal ulna. Left elbow joint effusion witho ut dislocation. No other visualized fracture. No soft tissue gas or foreign body. IMPRESSION: Acute, intra-articular fractures of the left radial head/neck. Possible fracture at the tip of the coronoid process of the proximal ulna. No dislocation of the left elbow. Electronically signed by: Shanna Mckinley MD 03/08/2023 11:26 PM CDT Due to temporary technical issues with the PACS/Fluency reporting system, reports are being signed by the in house radiologists without review as a courtesy to insure prompt reporting. The interpreting radiologist is fully responsible for the content of the report.
--- NOTE | 2023-03-10 11:17 | RAD REPORT ---
EXAM DESCRIPTION: RAD - Wrist Left 2 View - 03/08/2023 10:57 pm CLINICAL HISTORY: 23 years Female Pain;Smash injury TECHNIQUE: 3 views of the left forearm COMPARISON: No prior exams provided for comparison. FINDINGS: There is an acute, intra-articular fracture of the left proximal radius. No other acute fr acture visualized in the left forearm. No dislocation. No aggressive osseous lesion. IMPRESSION: Acute, intra-articular fracture of the left proximal radius. No other acute fracture in the left forearm. Electronically signed by: Shanna Mckinley MD 03/08/2023 11:24 PM CDT Due to temporary technical issues with the PACS/Fluency reporting system, reports are being signed by the in house radiologists without review as a courtesy to insure prompt reporting. The interpreting radiologist is fully responsible for the content of the report.
== END 2023-03-09 04:27 | disposition home or self-care (01) ==
LOC: ER 20:57
PROC: 2W39X1Z Immobilization of Left Upper Extremity using Splint (ICD-10-PCS; principal; 2023-03-09)
DX: S52.102A Unspecified fracture of upper end of left radius, initial encounter for closed fracture (principal); W01.10XA Fall on same level from slipping, tripping and stumbling with subsequent striking against unspecified object, initial encounter
CPT/HCPCS: 73080; 73100; 96372; 99284; 29105; J1170 ×2